=== PATIENT | male | born 1950 | race Caucasian/White ===

== ENCOUNTER → 2018-01-08 16:57 | Outpatient (CLI) | payer MEDICARE, OTHER, SELFPAY ==
--- NOTE | 2018-01-08 17:36 | MRI_ITS ---
STUDY: MRI BRAIN WITH AND WITHOUT CONTRAST REASON FOR EXAM: Male, 67 years old. HEARING LOSS LT EAR WORSENING OVER THE LAST 6 MONS TECHNIQUE: Standardized multiplanar fat and water weighted pulse sequences were obtained. 8 ml of Gadavist contrast material was administered intravenously for the contrast portion of the examination. COMPARISON: None. FINDINGS: Normal size of the ventricles and extra-axial spaces for the patient's age. There are multiple white matter hyperintensities, distributed throughout the deep white matter tracts of the cerebral hemispheres, consistent with moderate chronic white matter ischemic changes. Normal bilateral basal ganglia. Normal thalami. There is no extra-axial fluid accumulation. Normal flow voids within the major intracranial circulation suggesting patency by spin echo criteria. Normal venous enhancement. There is no enhancing intra-axial or extra-axial abnormality. Normal sella turcica, pituitary gland, infundibular stalk, optic chiasm and hypothalamus. Normal tectal plate and pineal gland. Normal midbrain, susan and medulla. Normal cerebellum. Normal basal cisterns. Normal bilateral temporal bones. Normal bilateral internal auditory canals. No demonstrated orbital abnormality, within the constraints of a routine brain study. Normal visualized paranasal sinuses. Normal calvarium and skull base. Normal visualized soft tissue structures. Normal visualized upper cervical spine. MRI/Brain W/WO Contrast IMPRESSION: Involutional changes of the brain, as described above. Electronically Signed: Emerald Wesley MD at 6:23 EST Tel , Service support ,
[2018-01-09 00:31] LABS: CREATININE FINGERSTICK 0.8 mg/dL (0.70-1.30); EGFR FINGERSTICK > 60.0000 mL/min (>60)
== END ==
PROVIDERS: Visit Provider Otolaryngology
DX: H91.92 Unspecified hearing loss, left ear (principal)
CPT/HCPCS: 70553; A9585

== ENCOUNTER 2018-07-10 13:12 | Emergency (ER) | payer MEDICARE, OTHER, SELFPAY ==
[2018-07-10 13:13] VITALS: BP 122/72; PULSE 64; RESP 16; TEMP 37; O2SAT 96; BMI 25.8
--- NOTE | 2018-07-10 15:03 | ED.VISSUMM ---
- ER Visit Summary Date of Service: 07/10/18 Chief Complaint: Injury right little finger History of Present Illness: The patient is a 68 M who is left-hand dominant. He presents with injury to the right little finger. This occurred 2 days ago. He was leading a horse. He complains of pain over the proximal phalanx of the right little finger. He denies any paresthesia, anesthesia buttocks. He complains of pain with movement and limited range of motion. He is on no anticoagulant. Physical Examination: Vital signs are unremarkable. Blood pressure is slightly elevated at 122/72. There is swelling and pain abrasion of the proximal phalanx of the right little finger. The extensor minimize tendon is intact. The flexor digitorum superficialis and flexor digitorum profundus are intact. There is no rotational malalignment. Sensation is normal. Capillary refill is normal. There is no laxity to collateral ligaments with stressing. Test Results: Three-view x-ray of the right little finger was obtained and reveals a spiral/oblique fracture of the proximal phalanx with shortening. Emergency Department Course and Treatment: X-ray was obtained to evaluate for fracture. Treatment Plan: Patient was placed in aluminum splint and referred to orthopedics. Case was discussed with orthopedics. Disposition: Discharged home with outpatient follow-up Monday and surgery next week Impression: Spiral fracture proximal phalanx right little finger initial encounter This note was generated with [employer] dictation software. It may contain incorrect words, spelling, and punctuation that were not noted in review of the chart prior to signing ED Disposition - Plan for ED Patient: Disposition: Home or Assisted Living Chief Complaint: Upper Extremity Injury Instructions: ED Fx Finger Closed Referrals: Care Physician,No Primary [Primary Care Provider] - Jaky Pelletier DO [STAFF PHYSICIAN] - 07/13/18 Additional Instructions: Call Dr. Oliver's office today for appointment to be seen on Monday and scheduled for surgery for next week
[2018-07-10 15:20] VITALS: RESP 18; O2SAT 98
== END 2018-07-10 15:21 | disposition home or self-care (01) ==
PROVIDERS: Emergency Provider Emergency Medicine
DX: S62.646A Nondisplaced fracture of proximal phalanx of right little finger, initial encounter for closed fracture (principal); X58.XXXA Exposure to other specified factors, initial encounter; Y93.K1 Activity, walking an animal; Y92.89 Other specified places as the place of occurrence of the external cause; Y99.8 Other external cause status
CPT/HCPCS: 73140; 99282

== ENCOUNTER → 2018-07-17 13:31 | Outpatient (CLI) | payer MEDICARE, OTHER, SELFPAY | PROVIDERS: Visit Provider Physician Assistant | DX: S62.608A Fracture of unspecified phalanx of other finger, initial encounter for closed fracture (principal); S62.646D Nondisplaced fracture of proximal phalanx of right little finger, subsequent encounter for fracture with routine healing | CPT/HCPCS: 73140; 97165; 97760; G8987; G8988 ==

== ENCOUNTER 2018-08-29 16:00 | Outpatient (RCR) | payer MEDICARE, OTHER, SELFPAY ==
--- NOTE | 2018-07-17 15:21 | HP.OTEVAL_ITS ---
Patient's Visit Information TUCKER MARIA is a 68 year old M, referred to Occupational Therapy by Jaky Pelletier DO, with a diagnosis of right LF 5th prox phal fx. Date of Evaluation: 07/17/18 Occupational Therapist: Sofy Polo, HIR/Paulino, CHT - Subjective Subjective: This 68 year old male was seen for inital OT eval following a right LF prox phal fx. pt states on he suffered injury to his finger due to his horse. pt went to ER next day and today was evaluated by Dr. Pelletier. pt is currently in need of custom orthosis to allow for protection and support while fx is healing. - Pain right LF 3 Pain Intensity Range: 0, 5 - ROM ROM Comments: left hand demo no limitations. right to be tested at later date when fx heals - Strength Strength Comments: to be tested at later date - DASH-Disabilities of Arm, Shoulder& Hand DASH Sum: 105 - Goals Goal:: pt will demo understanding of orthosis donning/doffing by end of 1st session. pt will demo understanding of precautions and use of orthosis by end of 1st session. - Rehabilitation General Assessment: pt demo with right LF prox phal fx. pt is in need of custom orthsis to provide protection and support during healing. Today pt was damien. custom orthosis, instrucred in to use at all times, may remove for washing his hand. pt ed in orthosis wear,care and precautions. pt demo understanding. pt to return for orthosis adj as needed. Rehabilitation Potential: Good - Anticipated Interventions Anticipated Interventions: Orthoses Other Interventions: ed. pt on orthosis use, care and wearing precautions - Visit Plan Frequency: PRN for orthosis adj TEXT: Thank you for the opportunity to evaluate your patient. For Medicare and Medicare HMO plans, please review the plan of care and approve it. It will need to be FAXED BACK to us at [phone] for Medicare purposes. Please let me know if there are questions or concerns regarding this plan of care. Physician Signature: Date:
--- NOTE | 2018-10-29 10:04 | HP.OT.NRP ---
HP - Discharge Summary - Patient Information TUCKER MARIA was seen in my office for initial evaluation on 07/17/18. The following Plan of Care was established for this patient: Initial Frequency: PRN for orthosis adj Plan: pt to decide if he would like to work on increase PIP ex. - Anticipated Interventions Anticipated Interventions: Orthoses Other Interventions: ed. pt on orthosis use, care and wearing precautions This patient was last seen in our office 08/29/18. Pertinent comments regarding their Occupational therapy will appear below: Client was seen 6 visits- his last scheduled apt was a cancelation. Client has not scheduled any further apts and due to timelapse in therapy services client is D/C at this time. At this point I will be discontinuing this patient from occupational therapy. I would be happy to see this patient again in the future if found appropriate by the physician. Thank you! Sofy Polo, OTR/L, CHT
== END 2018-08-29 19:00 | disposition home or self-care (01) ==
LOC: OT 16:00
PROVIDERS: Visit Provider Orthopaedic Surgery
DX: S62.646D Nondisplaced fracture of proximal phalanx of right little finger, subsequent encounter for fracture with routine healing (principal)
CPT/HCPCS: 97110; 97140; 97165; 97530; 97760; 97763; G8987; G8988

== ENCOUNTER → 2018-09-04 14:54 | Outpatient (CLI) | payer MEDICARE, OTHER, SELFPAY ==
--- NOTE | 2018-09-04 14:57 | RAD_ITS ---
STUDY: X-RAY - RIGHT HAND, ATTENTION FIFTH FINGER REASON FOR EXAM: Follow-up fracture. TECHNIQUE: 3 view(s) of the finger were obtained. COMPARISON: Radiographs 07/17/2018. FINDINGS: Normal metacarpal. Normal metacarpophalangeal joint. There is an oblique fracture of the fifth proximal phalanx in near anatomic alignment and position with evidence of healing although the fracture line is still apparent. Normal middle phalanx. Normal distal phalanx. Normal proximal interphalangeal joint. Normal distal interphalangeal joint. RAD/Finger(s) Min 2 Views IMPRESSION: Healing fracture of the fifth proximal phalanx without change in alignment and position. Electronically Signed: Brian Stuart MD at 15:20 EDT Tel , Service support ,
== END ==
PROVIDERS: Referring Provider Physician Assistant; Visit Provider Physician Assistant
DX: S62.608D Fracture of unspecified phalanx of other finger, subsequent encounter for fracture with routine healing (principal)
CPT/HCPCS: 73140